=== PATIENT | female | born 1960 | race Caucasian/White ===

== ENCOUNTER → 2024-10-03 | Outpatient (CLI) | payer MEDICARE ==
--- NOTE | 2024-10-03 14:25 | HMCIMG ---
DEXA BONE DENSITY SURVEY HISTORY: No additional history given. COMPARISON: None FINDINGS: Bone densitometry study was performed. Bone mineral density of the lumbar spine is 1.106 gram per centimeter square which corresponds to a T score of 0.5 and a Z score of 2.4. Bone mineral density of the left hip is 0.839 grams per centimeter square which corresponds to a T score of -0.8 and a Z score of 0.4. IMPRESSION: 1. Normal bone mineral density of the lumbar spine and left hip.
--- NOTE | 2024-10-04 09:34 | HMCIMG ---
PROCEDURE: MAMMO DX BILATERAL HISTORY: Left breast cancer COMPARISON: None TECHNIQUE: Bilateral digital diagnostic mammogram with CAD was performed. No additional views were obtained. FINDINGS: Left breast lumpectomy changes are seen. Scar formation is seen in the left breast with dystrophic calcification. Previous study is not available limiting evaluation. Asymmetric breast density is seen in the upper outer quadrant of the left breast. Coned compression view and ultrasound are recommended for complete evaluation. The breasts are heterogeneously dense, which may obscure small masses. There is no evidence of a dominant mass, or suspicious microcalcification. There is no evidence of nipple retraction or skin thickening. IMPRESSION: 1. Asymmetric breast density is seen in the upper outer quadrant of the left breast. Coned compression view and ultrasound are recommended for complete evaluation. BI-RADS: CATEGORY 0: INCOMPLETE. NEED ADDITIONAL IMAGING EVALUATION Recommend monthly self breast exam as well as annual clinical examination. A negative x-ray should not delay biopsy if a dominant or clinically suspicious mass is present, since 8-10% of cancers are not identified by mammography. Dense breasts particularly, may obscure an underlying neoplasm. Some of these may be detected clinically and therefore, clinical examination is an essential part of breast evaluation.
== END | disposition home or self-care (01) ==
LOC: RAH 12:40
PROVIDERS: ATTEND Internal Medicine
DX: C50.912 Malignant neoplasm of unspecified site of left female breast (principal); N64.89 Other specified disorders of breast; Z78.0 Asymptomatic menopausal state; Z85.3 Personal history of malignant neoplasm of breast
CPT/HCPCS: 77066; 77080

== ENCOUNTER → 2024-10-10 | Outpatient (CLI) | payer MEDICARE ==
--- NOTE | 2024-10-10 09:36 | HMCIMG ---
US BREAST COMPLETE UNILATERAL REASON: abn mmg COMPARISON: Bilateral diagnostic mammogram 10/03/2024 TECHNIQUE: Left breast ultrasound images were performed and compared with diagnostic mammogram images and report. FINDINGS: Images show a stellate lesion in the region of the previous surgery. Focal spot compression views show some degree of effacement. This area appears unremarkable on the ultrasound. There are no focal masses. There is a 3 mm cyst in the 1:00 position. There is a possible 3 mm calcification at 1:00 position. IMPRESSION: 1. Left breast ultrasound shows no evidence of a focal mass lesion, mammographic findings appear consistent with the history of lumpectomy in the upper outer quadrant 2. Continued follow-up mammogram images recommended to confirm stable appearance.
== END | disposition home or self-care (01) ==
LOC: RAH 07:51
PROVIDERS: ATTEND Internal Medicine
DX: N60.02 Solitary cyst of left breast (principal); R92.8 Other abnormal and inconclusive findings on diagnostic imaging of breast; Z98.890 Other specified postprocedural states
CPT/HCPCS: 76641

== ENCOUNTER → 2025-01-02 | Outpatient (CLI) | payer MEDICARE, OTHER ==
[~2025-01-02] MED LIST: IOHEXOL 350 MG/ML 100ML INFUS..BTL IV ONE
--- NOTE | 2025-01-02 11:47 | HMCIMG ---
CT ABDOMEN WITHOUT AND WITH CONTRAST. CT PELVIS WITHOUT AND WITH CONTRAST INDICATION: Left lower abdominal pain and abdominal distention TECHNIQUE: Routine transaxial images at 5 mm slice thickness were obtained prior to the administration of contrast material through the abdomen only, and after the intravenous infusion of 100 mL of Omnipaque 350 through the abdomen and pelvis without adverse effects. Delayed images of the abdomen and pelvis were also obtained. Coronal and sagittal reformatted imaging acquired for interpretation. CT was performed with one or more of the following dose reduction techniques: Automated exposure control, adjustment of the mA and/or kV according to patient size, or use of iterative reconstruction technique. COMPARISON: None FINDINGS: ABDOMEN: Heart size is normal. Coronary arterial wall calcific plaque noted. Visible lung bases are clear. The liver is slightly enlarged and smooth in contour without lesions or biliary duct dilation. Diffuse low attenuation of the liver parenchyma suggests fatty change. The spleen is normal in size without lesions. The gallbladder appears normal. The pancreas appears normal without pancreatic duct dilation. The adrenal glands appear normal. Both kidneys appear unremarkable. Cortical nephrograms are symmetric and normal in appearance bilaterally. No significant abdominal, retrocrural or retroperitoneal adenopathy noted.No evidence for intra-abdominal free air or organized fluid collection. Mild calcific plaque is noted along the abdominal aortic and iliac vessel lópez without aneurysmal dilation or dissection. PELVIS: No evidence for free air or organized pelvic fluid collection. No significant pelvic adenopathy detected. Several diverticula along the distal colon and mild pericolonic fat stranding/edema along the antimesenteric wall of the far distal descending colon. No surrounding free air or organized fluid collection. Terminal ileum appears unremarkable. The appendix appears normal. The urinary bladder is nearly empty. Visible osseous structures are intact. IMPRESSION: 1. Acute very mild distal descending colonic diverticulitis without perforation or abscess, and no evidence for bowel obstruction or ascites. 2. Slightly enlarged fatty liver. 3. Arteriosclerotic disease as described.
== END | disposition home or self-care (01) ==
LOC: RAH 08:11
PROVIDERS: ATTEND Internal Medicine
DX: K57.32 Diverticulitis of large intestine without perforation or abscess without bleeding (principal); K76.0 Fatty (change of) liver, not elsewhere classified; I25.10 Atherosclerotic heart disease of native coronary artery without angina pectoris; I70.0 Atherosclerosis of aorta; R10.9 Unspecified abdominal pain
CPT/HCPCS: 74178; Q9967